=== PATIENT | female | born 2000 | race Caucasian/White ===

== ENCOUNTER 2019-07-09 19:29 | Day surgery (SDC) | payer OTHER ==
[2019-07-09] MEDS ORDERED: hydrALAZINE 20 MG/ML VIAL SLOW IVP PRN (20:43)
[2019-07-09 21:13] VITALS: BMI 24.9
[2019-07-09 21:14] VITALS: BP 113/78; TEMP 98.3
--- NOTE | 2019-07-09 21:18 | PDOC.FPROB ---
FMR OB H&P: HPI - History of Present Illness Chief Complaint: contractions History of Present Illness: 18 yo @ 38 weeks by LMP c/w 10 week sono presents for painful contractions that started @ 1820 and have been occurring every 5 minutes Primary Care Physician: Leatha FMR OB H&P: Current - OB Labs Blood type: O RH: negative Antibody Screen: negative HIV: negative RPR: negative HepBsAg: negative Rubella: immune Urine drug screen: not done Gonorrhea: negative Chlamydia: negative 3 hour GTT: 82/187/150/126 GBS: unknown FMR OB H&P: History - Past Medical History PMH: None - OB History OB History: , Rh neg, s/p rhogam - Surgical History Sx History: None - Social History Social History: No alcohol tobacco or drugs FMR OB H&P: Medications - Current Home Medications: Medication Instructions Recorded Confirmed Type Comb No.42/Folic Acid 1 tablet PO DAILY 07/09/19 07/09/19 History [Prena1 Chewable Tablet] Allergies/Adverse Reactions: Allergies Allergy/AdvReac Type Severity Reaction Status Date / Time No Known Allergies Allergy Verified 07/09/19 21:12 FMR OB H&P: ROS - Review of Systems General: denies: fever/chills, night sweats ENT: denies: nasal congestion, rhinorrhea Cardiovascular: denies: chest pain, palpitation Gastrointestinal: reports: abdominal pain, cramping. denies: nausea, vomiting, diarrhea, constipation Genitourinary (Female): reports: contractions. denies: incontinence, dysuria, hematuria, polyuria, vaginal discharge, vaginal pain, vaginal bleeding, vaginal pressure Musculoskeletal: denies: pain, tenderness Neurologic: denies: numbness, weakness Integumentary: denies: itching, rash Endocrine: denies: polyuria FMR OB H&P: Vital Signs - Maternal Vital signs: Vital Signs - First Documented Temp Pulse Resp BP 98.3 F 68 20 113/78 07/09/19 21:10 07/09/19 21:10 07/09/19 21:10 07/09/19 21:10 - Heart Tones Baseline: 140 Variability: moderate Acceleration: present Deceleration: absent Category: category 1 [place] contractions every: 5 min FMR OB H&P: Physical Exam - Physical Exam General: NAD, awake, alert and oriented HEENT: normocephalic and atraumatic, PERRLA, EOMI, MMM, conjunctiva clear, no scleral icterus, grossly normal vision, grossly normal hearing Neck: trachea midline, no LAD Chest: non-tender to palpation Breast: symmetric, no palpable masses Heart: RRR, normal S1/S2, no murmurs/rubs/gallops, pulses present, no edema General: CTAB, no respiratory distress, good air movement, no rales/rhonchi, no wheezing, no retractions Abdomen: soft, gravid, non-tender, bowel sound present FMR OB H&P: A/P - Problem List (1) Term Status: Acute Code(s): Z34.90 - ENCNTR FOR SUPRVSN OF NORMAL , UNSP, UNSP TRIMESTER Disposition: 1) TIUP, latent labor - pt recently checked in office, uncahnged from office visit on Saturday. - cont to have contractions - plan for obs for 2 hours and PO hydrate, if unchanged exam dc to home with return precautions. Discussion: Date/Time: 07/09/192117 This H&P was discussed with Dr. Lopez. Addendum - Attending - Attending Attestation Date/Time: 07/10/19727 I personally evaluated the patient and discussed the management with Dr. Velarde. I agree with the History, Examination, Assessment and Plan documented above with any addition or exceptions noted below. Cat 1, exam noted, recheck in 2 hours.
[2019-07-09 21:45] LABS: Bilirubin Negative (Negative); Blood, Urine Negative (Negative); Clarity Clear (Clear); Glucose, Urine (Dipstick) Normal (Negative); Leukocyte Negative Leu/uL (Negative); Nitrite Negative (Negative); Protein, Urine (Dipstick) Negative (Neg-Trace); RBC/HPF 0-3 HPF (0-3); Squamous Epithelial 0-3 HPF (0-3); Urobilinogen Normal mg/dL (Less than 2); WBC/HPF 0-3 HPF (0-3)
[2019-07-09 21:56] LABS: Bacteria/HPF None Seen HPF (None Seen)
[2019-07-09 21:58] LABS: Urine Culture Reflex No No
--- NOTE | 2019-07-09 23:26 | PDOC.EVN ---
Event Note - Event Note Event Note: Cervical check unchanged. Pt mireille every 5 minutes. Wishes to go home, return precautions provided. Cat 1 strip pos accels no late or variable decelerations. Cervix /-2. Addendum - Attending - Attending Attestation Date/Time: 07/10/19 7828 I personally evaluated the patient and discussed the management with Dr. Velarde. I agree with the History, Examination, Assessment and Plan documented above with any addition or exceptions noted below. Cat 1. No change. Ok for d/c.
== END 2019-07-09 23:35 | disposition home or self-care (01) ==
LOC: L&D/OP 19:29
PROVIDERS: ATTEND Emergency Medicine
DX: O47.1 False labor at or after 37 completed weeks of gestation (principal); Z3A.38 38 weeks gestation of pregnancy
CPT/HCPCS: 81001; 99284

== ENCOUNTER 2019-07-17 11:34 | Inpatient (IN) | payer OTHER ==
[2019-07-17] MEDS ORDERED: hydrALAZINE 20 MG/ML VIAL SLOW IVP PRN ×2 (11:54→12:27)
[2019-07-17 12:01] VITALS: BMI 24.3
[2019-07-17] MEDS ORDERED: Methylergonovine 0.2 MG/ML VIAL IM PRN (12:27)
[2019-07-17] MEDS ORDERED: Acetaminophen 500 MG TAB PO PRN (12:27)
[2019-07-17] MEDS ORDERED: Promethazine HCl 25 MG/ML VIAL IM PRN (12:27)
[2019-07-17] MEDS ORDERED: Docusate 100 MG CAP PO PRN (12:27)
[2019-07-17] MEDS ORDERED: Misoprostol 200 MCG TAB PR PRN (12:27)
[2019-07-17] MEDS ORDERED: Lidocaine 1% (PF) 30 ML VIAL SC PRN (12:27)
[2019-07-17] MEDS ORDERED: NS / Oxytocin 40 units/1000ml 1,000 ML IV PRN (12:27)
[2019-07-17] MEDS ORDERED: Ibuprofen 800 MG TAB PO PRN (12:27)
[2019-07-17] MEDS ORDERED: NS w/ Oxytocin 10 units 500 ML IV SCH (12:30)
--- NOTE | 2019-07-17 12:39 | PDOC.FPROB ---
FMR OB H&P: HPI - History of Present Illness Chief Complaint: Gush of fluid, pelvic pressure Indentification: 18 yo History of Present Illness: 18 yo @ 39.1 by LMP c/w 10 week sono presents for loss of fluid and painful contractions. Pt reports she was sitting on her couch when she experienced a gush of fluid preceded by mucus and bloody discharge around 1130 am. Sh reports increased pelvic pressure and discomfort, denies cont vaginal bleeding. reports some decreased movement earlier which has resolved. Primary Care Physician: ZULLY Velarde FMR OB H&P: Current - Care : 1 Para: 0 Gestational age: 39.1 Due date: 07/23/2019 Dating Criteria: lmp 10 week sono Course/Complications: Anemia of pregancy, Rh negative, teen - OB Labs Blood type: O RH: negative Antibody Screen: negative HIV: negative RPR: negative HepBsAg: negative Rubella: immune Quad screen: unknown Urine drug screen: not done Gonorrhea: negative Chlamydia: negative 3 hour GTT: 82,187,150,126 FMR OB H&P: History - Past Medical History PMH: None - OB History OB History: None - ORTHOPAEDIC NURSE History ORTHOPAEDIC NURSE History: None - Surgical History Sx History: None - Social History Social History: Denies alcohol, tobacco, drug use FOB and involved. - Family History Family History: NA FMR OB H&P: Medications - Current Home Medications: Medication Instructions Recorded Confirmed Type Comb No.42/Folic Acid 1 tablet PO DAILY 07/09/19 07/09/19 History [Prena1 Chewable Tablet] Allergies/Adverse Reactions: Allergies Allergy/AdvReac Type Severity Reaction Status Date / Time No Known Allergies Allergy Verified 07/09/19 21:12 FMR OB H&P: ROS - Review of Systems General: denies: fever/chills, night sweats, fatigue Eyes: denies: eye pain, vision changes ENT: denies: nasal congestion, rhinorrhea Cardiovascular: denies: chest pain, palpitation Respiratory: denies: cough, shortness of breath Gastrointestinal: reports: cramping. denies: abdominal pain, nausea, vomiting, diarrhea, constipation Genitourinary (Female): reports: contractions, vaginal pressure. denies: incontinence, dysuria, polyuria, vaginal discharge, vaginal pain Musculoskeletal: denies: pain, stiffness, tenderness Neurologic: denies: numbness, syncope, weakness Endocrine: denies: cold intolerance, heat intolerance FMR OB H&P: Vital Signs - Maternal Vital signs: Vital Signs - First Documented Temp Pulse Resp BP 98.1 F 77 22 H 127/76 07/17/19 11:57 07/17/19 11:57 07/17/19 11:57 07/17/19 11:57 - Heart Tones Baseline: 140 Variability: moderate Acceleration: present Deceleration: variable Category: category 1 [place] contractions every: 5-7 FMR OB H&P: Physical Exam - Physical Exam General: NAD HEENT: normocephalic and atraumatic, PERRLA, MMM, conjunctiva clear, grossly normal vision, grossly normal hearing Neck: trachea midline Chest: non-tender to palpation Heart: RRR, normal S1/S2, no murmurs/rubs/gallops General: CTAB, no respiratory distress, good air movement, no rales/rhonchi, no wheezing, no retractions Abdomen: soft, gravid, non-tender, bowel sound present, no masses Musculoskeletal: pulses present, FROM in all four extremities Neurological: no clonus, no focal deficit Skin: good tugor, no jaundice Psychiatric: normal mood and affect - Pelvic Exam Vulva: normal hair distribution, appropriate yodit stage, no discharge, no blood Cervix: no masses, no lesions SVE: /+1 Green score: 8 Membranes: Ruptured, grossly Presentation: Vertex Estimated Weight: 7 lbs FMR OB H&P: A/P - Problem List (1) SROM (spontaneous rupture of membranes) Current Visit: Yes Status: Acute Code(s): [id number] - (2) Term Current Visit: No Status: Acute Code(s): Z34.90 - ENCNTR FOR SUPRVSN OF NORMAL , UNSP, UNSP TRIMESTER Disposition: Stable, SROM confirmed by spec exam + pooling of fluid/leaking from os. 1) SROM: - will admit to l&d for delivery - pit if needed for augmentation - cervical check /+1, green 8 - fhts mod variability pos accels no late or variable decels - pt w/ painful contractions and desires epidural, anesthesia consulted for epidural 2) Rh neg - rhogam pp 3) Anemia of - hemagram pending Discussion: Date/Time: 07/17/19 1237 This H&P was discussed with Dr. Marroquin who agree with the above documentation and plan.
[2019-07-17 13:41] LABS: Hemoglobin 11.8 g/dL (12.0-16.0); Mean Corpuscular HGB CONC 35.1 g/dL (32.0-36.0); Mean Corpuscular Hemoglobin 30.4 pg (25.0-35.0); Mean Corpuscular Volume 86.7 fL (78.0-98.0); Mean Platelet Volume 10.2 fL (7.4-10.4); Platelet Count 145 thou/uL (130-400); RBC Distribution Width 13.2 % (11.5-14.5); Red Blood Cell (RBC) Count 3.87 mill/uL (4.00-5.20); White Blood Cell (WBC) Count 10.3 thou/uL (4.8-10.8)
[2019-07-17 14:19] LABS: Syphilis Antibody Nonreactive (Nonreactive); Syphilis Antibody Index 0.03 S/CO (<1.00 Non-Reactive)
[2019-07-17 14:20] LABS: HBSAg Index 0.17 S/CO (0-0.99); Hep B Surf Ag Non-Reactive S/CO (NonReactive)
[2019-07-17] MEDS: Lactated Ringer's 1,000 ML IV SCH ×2 (15:38→21:01)
[2019-07-17] MEDS ORDERED: Fentanyl 4 mcg/Bup 0.1% Cadd 0 ML ONE (17:51)
[2019-07-17] MEDS: Butorphanol Tartrate 1 MG/ML VIAL SLOW IVP PRN ×2 (18:11→21:07)
[2019-07-17] MEDS: Ondansetron PF 4 MG/2 ML Vial IVP PRN (18:20)
--- NOTE | 2019-07-17 21:12 | PDOC.LDPN ---
Labor & Delivery Progress Note - Subjective Subjective: comfortable, painful contractions, no concerns - Objective Vital signs reviewed and normal: yes General: NAD, resting, breathing through contractions Uterine fundus: non tender SVE: Dr. Gallegos Dilation: 3 Effacement: 100% Station: 0 FHT: category 1 (FHT's 120 baseline. Mod variability, Accels present ), variability present [place] contractions every: 3-5 minutes Plan: continue plan of care, pitocin for augmentation -: 18 y/o F @ 39.1 wks gestation 1) SROM: Latent Labor - pit for augmentation titrated to 8 currently - cervical check 3100/0 @2105, recheck in X4 hours - fhts 120 baseline: mod variability, accels no late or variable decels - pt w/ painful contractions and desires epidural once she dilates more, anesthesia consulted for epidural - Continue titrating pitocin 2) Rh neg - rhogam pp 3) Anemia of -Hg/Hct: 11.8/33.6 Dispo: Pt stable. Continue labor management of latent labor. Addendum - Attending - Attending Attestation Date/Time: 07/18/19 3524 I personally evaluated the patient and discussed the management with Dr. Gallegos and team. I agree with the History, Examination, Assessment and Plan documented above with any addition or exceptions noted below.
--- NOTE | 2019-07-17 23:41 | PDOC.LDPN ---
Labor & Delivery Progress Note - Subjective Subjective: comfortable, painful contractions, no concerns - Objective Vital signs reviewed and normal: yes General: NAD, breathing through contractions Uterine fundus: non tender Dilation: 4 Effacement: 75% Station: 0 FHT: category 1 (baseline 120s pos accels no late or variable decels), variability present [place] contractions every: 2 min IUPC placed: yes Resuscitative measures: maternal IV fluids, maternal position change - Assessment (1) SROM (spontaneous rupture of membranes) Code(s): [id number] - Current Visit: Yes Status: Acute (2) Term Code(s): Z34.90 - ENCNTR FOR SUPRVSN OF NORMAL , UNSP, UNSP TRIMESTER Current Visit: No Status: Acute Plan: continue plan of care, pitocin for augmentation -: 1) term ROM - cont pitocin for augmentation - IUPC placed to ensure adequate MVUs - cervical check 4/75/0, FHTs 120s mod variability pos accels w/o late or variable decels - painful contractions, tolerable currently - recheck cervix 4 hours Addendum - Attending - Attending Attestation Date/Time: 07/18/19 8363 I personally evaluated the patient and discussed the management with Dr. Velarde. I agree with the History, Examination, Assessment and Plan documented above with any addition or exceptions noted below.
[2019-07-18] MEDS ORDERED: Fentanyl 4 mcg/Bup 0.1% Cadd 100 ML ONE ×2 (00:26→08:23)
[2019-07-18] MEDS ORDERED: ePHEDrine/0.9% NaCl/PF SYRINGE 50 mg/10 ml SLOW IVP PRN (01:13)
[2019-07-18] MEDS ORDERED: Lactated Ringer's 500 ML IV PRN (01:13)
[2019-07-18] MEDS ORDERED: Promethazine HCl 25 MG/ML VIAL IM PRN (01:13)
[2019-07-18] MEDS ORDERED: Naloxone HCl 0.4 mg/ml Vial IVP PRN ×2 (01:13)
[2019-07-18] MEDS ORDERED: Ondansetron PF 4 MG/2 ML Vial IVP PRN ×2 (01:13→14:01)
[2019-07-18] MEDS ORDERED: diphenhydrAMINE 50 MG/ML VIAL IVP PRN (01:13)
[2019-07-18] MEDS ORDERED: Acetaminophen 325 MG TAB PO PRN (01:13)
[2019-07-18] MEDS ORDERED: Fentanyl 4 mcg/Bupivacaine 0.1% Cassette 100 ML EPIDURAL SCH (01:15)
[2019-07-18] MEDS ORDERED: Communication Order-Pharmacy FS SCH (01:15)
[2019-07-18] MEDS: Ondansetron PF 4 MG/2 ML Vial IVP PRN (01:36)
--- NOTE | 2019-07-18 04:13 | PDOC.LDPN ---
Labor & Delivery Progress Note - Subjective Subjective: comfortable (mild pain with ctx despite epidural) - Objective Vital signs reviewed and normal: yes General: NAD, resting SVE: 6/80/-1 FHT: category 1 (mod aba, + accels, - decels) [place] contractions every: q2-3m, pit @ 8 IUPC placed: yes - Assessment (1) SROM (spontaneous rupture of membranes) Code(s): [id number] - Current Visit: Yes Status: Acute (2) Term Code(s): Z34.90 - ENCNTR FOR SUPRVSN OF NORMAL , UNSP, UNSP TRIMESTER Current Visit: No Status: Acute Plan: continue plan of care (continue pitocin, anticipate )
[2019-07-18] MEDS: Lactated Ringer's 1,000 ML IV SCH ×3 (04:34→23:05)
--- NOTE | 2019-07-18 07:14 | PDOC.LDPN ---
Labor & Delivery Progress Note - Subjective Subjective: comfortable, no concerns - Objective Vital signs reviewed and normal: yes General: NAD, resting, breathing through contractions Uterine fundus: non tender SVE: 680/0 Dilation: 6 Effacement: 75% Station: 0 FHT: category 1 (FHT's 140. Accels presents ), variability present [place] contractions every: 2 min IUPC placed: yes Plan: continue plan of care, pitocin for augmentation -: 1) SROM: Active Labor - pit for augmentation titrated to 8 currently - cervical check 80/0 @0705, recheck in X2 hours - fhts 140 baseline: mod variability, accels no late or variable decels - epidural in place - Continue titrating pitocin to reach adequate contractions - mvus 170-180 2) Rh neg - rhogam pp 3) Anemia of -Hg/Hct: 11.8/33.6 Dispo: Pt stable. Addendum - Attending - Attending Attestation Date/Time: 07/18/19 2990 I personally evaluated the patient and discussed the management with Dr. Gallegos. I agree with and repeated the History, Examination, Assessment and Plan documented above with any addition or exceptions noted below. Unfortunately no change and now in active labor. Discuss criteria for arrest/ FTP. Continue to titrate pitocin to obtain adequate MVUs.
--- NOTE | 2019-07-18 09:04 | PDOC.LDPN ---
Labor & Delivery Progress Note - Subjective Subjective: comfortable, no concerns - Objective Vital signs reviewed and normal: yes General: NAD, resting, breathing through contractions Uterine fundus: non tender Dilation: 6.5 Effacement: 90% Station: 0 FHT: category 1, variability present [place] contractions every: 2-3 Procedures: Forebag ruptured AROM: clear fluid Resuscitative measures: maternal IV fluids, maternal position change - Assessment (1) SROM (spontaneous rupture of membranes) Code(s): [id number] - Current Visit: Yes Status: Acute (2) Term Code(s): Z34.90 - ENCNTR FOR SUPRVSN OF NORMAL , UNSP, UNSP TRIMESTER Current Visit: No Status: Acute Plan: continue plan of care, labor augmentation, pitocin for augmentation -: 1) Term SROM - cervical check - forebag ruptured, clear fluid - cont pitocin for augmentation titrate to adequate MVUs. - contraction pattern coupling difficult to maintain adequate MVUs - FHTs 120s pos accels no late or variable decelerations - cont plan of care Addendum - Attending - Attending Attestation Date/Time: 07/19/19 9760 I personally evaluated the patient and discussed the management with Dr. Velarde and team at time of note. I agree with the History, Examination, Assessment and Plan documented above with any addition or exceptions noted below.
[2019-07-18] MEDS ORDERED: Bupivacaine/Epinephrine 0.25% 30 ML VIAL ONE (11:11)
[2019-07-18] MEDS ORDERED: Bupivacaine 0.25% HCL 30 ML VIAL ONE (11:11)
[2019-07-18] MEDS ORDERED: Butorphanol Tartrate 1 MG/ML VIAL ONE (11:37)
[2019-07-18] MEDS: Butorphanol Tartrate 1 MG/ML VIAL SLOW IVP PRN (11:40)
[2019-07-18] MEDS ORDERED: Lanolin Ointment 7 GM TUBE TOP PRN (14:01)
[2019-07-18] MEDS ORDERED: Milk Of Magnesia 30 ML UDCUP PO PRN (14:01)
[2019-07-18] MEDS ORDERED: HYDROcodone/Acetaminophen 5/325 mg Tablet PO PRN (14:01)
[2019-07-18] MEDS ORDERED: Benzocaine-Menthol 82.5 ML CAN TOP PRN (14:01)
[2019-07-18] MEDS ORDERED: hydrALAZINE 20 MG/ML VIAL SLOW IVP PRN (14:01)
[2019-07-18] MEDS ORDERED: NS / Oxytocin 40 units/1000ml 1,000 ML IV SCH (14:01)
[2019-07-18] MEDS ORDERED: Preparation H Ointment 28 GM TUBE PR PRN (14:01)
[2019-07-18] MEDS ORDERED: Bisacodyl 10 MG SUPP PR PRN (14:01)
[2019-07-18] MEDS: HYDROcodone/Acetaminophen 5/325 mg Tablet PO PRN (19:24)
[2019-07-18] MEDS: Ferrous Sulfate 325 MG TAB PO SCH (19:26)
[2019-07-18] MEDS: Ibuprofen 800 MG TAB PO SCH ×2 (19:27→21:10)
[2019-07-18] MEDS: Docusate Calcium (SURFAK) 240 MG CAP PO SCH (21:10)
[2019-07-19] MEDS: HYDROcodone/Acetaminophen 5/325 mg Tablet PO PRN ×2 (02:06→17:55)
[2019-07-19] MEDS: Ibuprofen 800 MG TAB PO SCH ×3 (05:23→20:30)
[2019-07-19] MEDS: Lactated Ringer's 1,000 ML IV SCH ×2 (06:08→13:36)
--- NOTE | 2019-07-19 06:21 | OP ---
DATE OF PROCEDURE: 07/18/2019 DATE OF DELIVERY: 07/18/2019. DELIVERING PHYSICIANS: 1. Dr. Rodrigue Lopez. 2. Dr. Kwadwo Velarde. PROCEDURES: Spontaneous vaginal delivery. ANESTHESIA: Local for repair. QUANTITATIVE BLOOD LOSS: 700 mL. PREOPERATIVE DIAGNOSIS: Term intrauterine with spontaneous rupture of membranes. POSTOPERATIVE DIAGNOSIS: Term intrauterine , delivered. INDICATIONS: The patient is a 18-year-old G1, P0, presents with spontaneous rupture of membranes. DELIVERY NOTE: This is a 18-year-old female, G1, P0, at 39 and 3 weeks, who delivered a viable female infant at 1114 on 07/18/2019. Following an uneventful antepartum course, a vigorous female infant was delivered over an intact perineum in the occipitoanterior position. Anterior shoulder and remainder of body delivered. There was a nuchal cord x1. The head was held down. The mouth and nares were bulb suctioned. The cord clamped and cut and cord blood was collected. The placenta delivered intact with three vessel cord noted. Fundal massage was performed and the fundus was firm. The cervix and vagina were inspected. There was found to be a second-degree perineal laceration that was repaired with 3-0 chromic in the usual fashion with good approximation and hemostasis noted after local anesthetic of 7 mL of lidocaine was injected at the site. The infant went to the nursery in good condition for routine care. Apgars were eight and nine at 1 and 5 minutes respectively. The patient tolerated delivery well and went to after routine recovery and care. Job ID: [id number] Attending addendum: I was present for the entire delivery. EMMA
[2019-07-19 06:46] LABS: Hemoglobin 8.6 g/dL (12.0-16.0); Mean Corpuscular Hemoglobin 30.7 pg (25.0-35.0); Mean Corpuscular Volume 87.7 fL (78.0-98.0); Mean Platelet Volume 10.4 fL (7.4-10.4); Platelet Count 118 thou/uL (130-400); RBC Distribution Width 13.2 % (11.5-14.5); Red Blood Cell (RBC) Count 2.79 mill/uL (4.00-5.20); White Blood Cell (WBC) Count 9.8 thou/uL (4.8-10.8)
[2019-07-19] MEDS ORDERED: Adacel (T-DAP) 0.5 ML SYRINGE IM ONE (09:00)
--- NOTE | 2019-07-19 09:13 | PDOC.PP ---
Post Progress Note Post Day #: 1 Subjective: 18 yo G1 now P1 pp day 1 s/p . Pt doing well and all pp milestones met. Pain well controlled with current regimen. PO intake tolerated: yes Flatus: yes Ambulation: yes Vital Signs (12 hours) Temp Pulse Resp BP 07/19/19 05:20 98.3 F 87 18 114/59 L 07/19/19 00:00 97.8 F 101 H 20 126/70 Weight Weight 70.307 kg - Physical Examination General: NAD Cardiovascular: no m/r/g, RRR Respiratory: clear to auscultation bilaterally Abdominal: + bowel sounds, no distention, appropriately TTP Extremities: negative homans (B) Neurological: no gross focal deficits Psychiatric: normal affect Result Diagrams: 07/19/19 04:58 Additional Labs: Post Labs Blood Type O NEGATIVE 07/17/19 15:04 Hep Bs Antigen Non-Reactive S/CO (NonReactive) 07/17/19 13:31 (1) SROM (spontaneous rupture of membranes) Code(s): [id number] - Status: Resolved (2) Term Code(s): Z34.90 - ENCNTR FOR SUPRVSN OF NORMAL , UNSP, UNSP TRIMESTER Status: Resolved (3) Vaginal delivery Code(s): O80 - ENCOUNTER FOR FULL-TERM UNCOMPLICATED DELIVERY Status: Acute - Assessment/Plan 1) Vaginal delivery - pt doing well and pain well controlled - all pp milestones met - will place consultation as pt is uncertain of /poor latch/form - possible dc tomorrow Addendum - Attending - Attending Attestation Date/Time: 07/19/19 1302 I personally evaluated the patient and discussed the management with Dr. Velarde. I agree with the History, Examination, Assessment and Plan documented above with any addition or exceptions noted below. Patient bottle feeding, desires IUD for cc. Plan for d/c tomorrow.
[2019-07-19] MEDS: Ferrous Sulfate 325 MG TAB PO SCH ×2 (10:10→17:56)
[2019-07-19] MEDS: Docusate Calcium (SURFAK) 240 MG CAP PO SCH ×2 (10:10→20:30)
[2019-07-19] MEDS: Prenatal Vitamin 1 TAB PO SCH (10:10)
[2019-07-20] MEDS: Lactated Ringer's 1,000 ML IV SCH ×3 (00:54→11:47)
[2019-07-20] MEDS: HYDROcodone/Acetaminophen 5/325 mg Tablet PO PRN ×2 (00:55→13:04)
[2019-07-20] MEDS: Ibuprofen 800 MG TAB PO SCH (05:52)
--- NOTE | 2019-07-20 07:42 | PDOC.PP ---
Post Progress Note Post Day #: 2 Subjective: 18 yo G1 now p1 pp day 2 s/p w/ 2nd degree perineal laceration. All pp milestones met and mother doing well. PO intake tolerated: yes Flatus: yes Ambulation: yes Vital Signs (12 hours) Temp Pulse Resp BP Pulse Ox 07/20/19 05:50 98.4 F 98 18 128/67 07/20/19 01:00 98.2 F 86 20 116/63 07/19/19 20:30 98.3 F 98 18 120/65 100 Weight Weight 70.307 kg - Physical Examination General: NAD Cardiovascular: no m/r/g, RRR Respiratory: clear to auscultation bilaterally, non-labored breathing Abdominal: + bowel sounds, no distention, appropriately TTP Extremities: negative homans (B) Skin: no rash Neurological: no gross focal deficits Psychiatric: normal affect Result Diagrams: 07/19/19 04:58 Additional Labs: Post Labs Blood Type O NEGATIVE 07/17/19 15:04 Hep Bs Antigen Non-Reactive S/CO (NonReactive) 07/17/19 13:31 (1) SROM (spontaneous rupture of membranes) Code(s): [id number] - Status: Resolved (2) Vaginal delivery Code(s): O80 - ENCOUNTER FOR FULL-TERM UNCOMPLICATED DELIVERY Status: Acute - Assessment/Plan 1) Term vag delivery - pt doing well and all pp milestones met - will plan on dc to home today with f/u @ [facility] in 2 weeks - IUD for PPCC 2) Rh neg: - pt received rhogam pp per protocol Addendum - Attending - Attending Attestation Date/Time: 07/20/19 8881 I personally evaluated the patient and discussed the management with Dr. Layton I agree with the History, Examination, Assessment and Plan documented above with any addition or exceptions noted below - Patient without complaints. Afebrile VSS. A/P: 1) PPD#2 s/p - d/c home today. F/U at [facility] in 2 weeks. .
[2019-07-20 08:23] VITALS: BP 112/55; TEMP 97.9
[2019-07-20] MEDS: Docusate Calcium (SURFAK) 240 MG CAP PO SCH (09:48)
[2019-07-20] MEDS: Ferrous Sulfate 325 MG TAB PO SCH (09:48)
[2019-07-20] MEDS: Prenatal Vitamin 1 TAB PO SCH (09:48)
--- NOTE | 2019-07-22 06:56 | PQF ---
JONNIE SHANKAR BRANDON [id number] CLINICAL DOCUMENTATION CLARIFICATION FORM: POST DISCHARGE Addendum to original discharge summary date: ____ Late entry note date: __ DATE: 07-22-2019 ATTN:Rodrigue Ramos Please exercise your independent, professional judgment in responding to the clarification form. Clinical indicators are provided on the bottom of this form for your review Can you please specify the type of anemia. Please check appropriate box(s): [ x] Acute blood loss anemia [ ] Post-op anemia related to acute blood loss [ ] Anemia Unspecified [ ] Other diagnosis please specify [ ] Unable to determine CLINICAL INDICATORS: -H&P 07/17 Dr. Velarde - "anemia of " -OP 07/19 Dr. Velarde - "blood loss: 700ml" -OP 07/19 Dr. Velarde - "found to have second degree perineal laceration" -Labs: RBC 07/17 3.87 07/19 2.79 -Labs: Hgb 07/17 11.8 07/19 8.6 RISK FACTORS: -OP 07/19 Dr. Velarde - second degree perineal laceration -H&P 07/17 Dr. Velarde - 18 years old female -H&P 07/17 Dr. Velarde - 39.1 weeks gestation -OP 07/19 Dr. Velarde - s/p TREATMENTS: -JAN 23 -Ferrous Sulfate 325mg Oral -JAN 23 -IVF (This form is maintained as a part of the permanent medical record) 2014 [employer]. All Rights Reserved Juliette [email or web address] [not [email or web address]] [email or web address]
== END 2019-07-20 13:35 | disposition home or self-care (01) | DRG 806 ==
LOC: L&D/OP 11:34 → L&D 12:43 → 3SW 07-18 20:18
PROVIDERS: ADMIT Family Medicine; ATTEND Family Medicine
PROC: 10E0XZZ Delivery of Products of Conception, External Approach (ICD-10-PCS; principal; 2019-07-19)
PROC: 0KQM0ZZ Repair Perineum Muscle, Open Approach (ICD-10-PCS; 2019-07-19)
PROC: 10H07YZ Insertion of Other Device into Products of Conception, Via Natural or Artificial Opening (ICD-10-PCS; 2019-07-19)
PROC: 30233S1 Transfusion of Nonautologous Globulin into Peripheral Vein, Percutaneous Approach (ICD-10-PCS; 2019-07-19)
DX: O69.81X0 Labor and delivery complicated by cord around neck, without compression, not applicable or unspecified (principal); D62 Acute posthemorrhagic anemia; Z37.0 Single live birth; O99.02 Anemia complicating childbirth; O70.1 Second degree perineal laceration during delivery; Z3A.39 39 weeks gestation of pregnancy; Z67.91 Unspecified blood type, Rh negative; O26.893 Other specified pregnancy related conditions, third trimester; O76 Abnormality in fetal heart rate and rhythm complicating labor and delivery
CPT/HCPCS: 36415; 51702; 85027; 85461; 86780; 86850; 86900; 86901; 87340; 90384; 96372; 99285; J0595; J2001; J2405; J2590; S0020